=== PATIENT | female | born 1995 | race Caucasian/White ===

== ENCOUNTER 2024-05-23 18:04 | Emergency (ER) | payer OTHER, SELFPAY ==
[2024-05-23 18:08] VITALS: BP 149/89
[2024-05-23 18:39] LABS: % Basophils 0.6 % (0-2); % Eosinophils 1.4 % (0-6); % Immature Granulocytes 0.4 % (0-0.5); % Lymphocytes 17.7 % (20.5-51.1); % Monocytes 5.2 % (1.7-9.3); % Neutrophils 74.7 % (42.2-75.2); Absolute Basophils 0.1 10^3/uL (0-0.2); Absolute Eosinophils 0.2 10^3/uL (0-0.7); Absolute Immature Granulocytes 0.1 10^3/uL (0-0.05); Absolute Lymphocytes 2.7 10^3/uL (1.2-3.4); Absolute Monocytes 0.8 10^3/uL (0.1-0.6); Absolute Neutrophils 11.5 10^3/uL (1.4-6.5); Hematocrit 38.7 % (37.0-47.0); Hemoglobin 13.4 g/dL (12.0-16.0); Mean Corp Hgb Conc. 34.6 g/dL (33.0-37.0); Mean Corpuscular Hgb 27.9 pg (27.0-31.0); Mean Corpuscular Volume 80.5 fL (81.0-99.0); Mean Platelet Volume 10.2 fL (7.4-10.4); Nucleated Red Blood Cells % 0 %; Platelet Count 396 10^3/uL (130-400); Red Blood Cell Count 4.81 10^6/uL (4.20-5.40); Red Cell Dist. Width 12.6 % (11.5-14.5); White Blood Cell Count 15.4 10^3/uL (4.8-10.8)
[2024-05-23 18:45] VITALS: BP 131/82
[2024-05-23 19:00] VITALS: BP 128/84
[2024-05-23 19:03] LABS: ALT (SGPT) 24 U/L (0-35); AST (SGOT) 24 U/L (14-36); Albumin 4.7 g/dl (3.5-5.0); Alkaline Phosphatase 74 U/L (38-126); Blood Urea Nitrogen 13 mg/dl (7-17); Calcium 9.7 mg/dl (8.4-10.2); Carbon Dioxide 25 mmol/L (22-30); Chloride 101 mmol/L (98-107); Glucose 116 mg/dl (70-99); Potassium 4.7 mmol/L (3.5-5.1); Sodium 139 mmol/L (135-145); Total Bilirubin 0.5 mg/dl (0.2-1.3); Total Protein 7.7 g/dl (6.3-8.2); eGFR > 60.00
[2024-05-23 19:04] LABS: Troponin I < 0.012 ng/ml
--- NOTE | 2024-05-23 19:23 | ED.GENMED ---
History of Present Illness
General
Chief Complaint: Chest Pain
Source: patient
Exam Limitations: none
Time Seen by Provider: 05/23/24 18:36
History of Present Illness
History of Present Illness:
This is a 28 year old female that comes in with c/o lower sternal chest pain. States that this pain goes into her back and started around 2-2:30pm. States that the pain has been constant. Denies any fever, chills, SOB, abd pain, nausea, vomiting,
diarrhea, headache, dizziness, urinary burning
Past History
Past History
ED Past Medical History: HTN and Other (Mastocytosis)
ED Past Surgical History: Other (Myringotomy tubes, BOne marrow biopsy, )
Social History
Tobacco: Non-smoker
Alcohol: None
Personal: Single
Living: with roommate
Review of Systems
Review of Systems
All Other Systems: ROS reviewed and negative except as documented in HPI and ROS
Constitutional: Reports no symptoms; Denies fever or chills
EENT: Reports no symptoms
Respiratory: Reports no symptoms; Denies cough or trouble breathing
Cardiac: Reports chest pain
ABD/GI: Denies abdominal pain, nausea, vomiting or diarrhea
: Reports no symptoms; Denies dysuria, frequency or urgency
Musculoskeletal: Reports no symptoms
Skin: Reports no symptoms
Neurological: Reports no symptoms; Denies dizzy or headache
Psychiatric: Reports no symptoms
Phy Exam
General Physical Exam
General Presentation: well appearing and no apparent distress
General age: appears stated age
General Skin: warm and dry
General Habitus: normal
General Mental: alert
General Hydration: appears well hydrated
ENT Exam
ENT Exam: TM's normal, pharynx normal and neck supple
Eye Exam
Eye Exam: EOMI
Cardiovascular Exam
Cardiovascular Exam: regular rate/rhythm, no edema, no murmur and normal peripheral pulses
Pulmonary Exam
Pulmonary Exam: lungs clear, no respiratory distress, no rales, chest non tender, no crackles, no rhonchi, no wheezing and no cough
Gastrointestinal Exam
Gastrointestinal Exam: normal bowel sounds, non tender, soft, no organomegaly, no pulsatile mass and non distended
Musculoskeletal Exam
Musculoskeletal Exam: full ROM and no edema
Skin Exam
Skin Exam: normal color, warm/dry, no rash and no petechia
Psychiatric Exam
Psychiatric Exam: normal mood/affect
Scores
Heart Score for Chest Pain Patients
STEMI patient?: No
History: Slightly or Non-Suspicious
ECG: Normal
Age: </= 45 years
Risk Factors: No Risk Factors
Troponin: </= Normal Limit
Heart Score for Chest Pain Patients: 0
Heart Score Risk: 2.5% MACE over next 6 weeks
Course
Orders/Labs/Results
Orders:
Orders
05/23/24 18:05
ECG [Electrocardiogram (*1)] Urgent
Reason for Study: Chest Pain
EKG- Treatment ONCE
05/23/24 18:29
CMP [Comprehensive Metabolic Panel] Urgent
Complete Blood Count/With Diff Urgent
Lipase Urgent
Comment: ADD ON
Troponin I Urgent
05/23/24 19:18
Add On- LAB Urgent
Tests Added?: Lipase
Pantoprazole [Protonix IV] 40 mg IV NOW STA
US Abdomen Complete/Upper Urgent
Comment:
Reason For Exam: epigastric pain. Wbc elevated
05/23/24 19:19
EKG- Treatment ONCE
05/23/24 19:29
CR Chest - 2 Views Urgent
Comment:
Reason For Exam: Chest pain
05/23/24 21:30
Electrocardiogram (*1) Urgent
Reason for Study: Chest Pain
Other Reason for Exam: Repeat with Troponin
05/23/24 21:46
Doxycycline [Vibramycin] 100 mg PO NOW STA
05/23/24 22:18
Troponin I Urgent
Abnormal Lab Results
05/23/24
18:29
WBC 15.4 H 10^3/uL
(4.8-10.8)
MCV 80.5 L fL
(81.0-99.0)
Abs Immat Gran (auto) 0.1 H 10^3/uL
(0-0.05)
Absolute Neuts (auto) 11.5 H 10^3/uL
(1.4-6.5)
Absolute Monos (auto) 0.8 H 10^3/uL
(0.1-0.6)
Lymphocytes % 17.7 L %
(20.5-51.1)
Glucose 116 H mg/dl
(70-99)
05/23/24 18:29
05/23/24 18:29
Leukocytosis, Hyperglycemia. Troponin <0.012
Second Troponin <0.012
Vital Signs
Initial and Last Documented VS:
Initial Vital Signs
Temp Pulse Resp BP Pulse Ox
99.0 F 67 16 149/89 96
05/23/24 18:08 05/23/24 18:08 05/23/24 18:08 05/23/24 18:08 05/23/24 18:08
Last Documented Vital Signs
Temp Pulse Resp BP Pulse Ox
99.0 F 62 21 134/91 97
05/23/24 18:08 05/23/24 21:00 05/23/24 21:00 05/23/24 21:00 05/23/24 21:00
MDM/Problems Addressed
Differential Diagnosis Includes:
Gallbladder disease, Gastritis, Coronary syndrome
MDM/Problems Addressed:
This is a 28 year old female that comes in with c/o lower chest pain. States that this started around 2-2:30pm and has been constant and that it goes into her back.
Will check labs. Chest x-ray, US
Back into see patient. Explained that her blood work shows an elevation of the WBC's and her chest x-ray shows that there is a right lower lobe Pneumonia. Will start patient on antibiotics and await for second Troponin.
Repeat ECG: rate 68, NSR, Normal axis. Normal QRS, negative for ischemia.
Into see patient. Explained that the Second Troponin is normal. Will have patient follow up with the family doctor for recheck. Patient to return with any concerns.
Chronic conditions affecting care:
NA
Acute Exacerbation and/or Progression of Chronic Illness:
NA
*Radiology
Radiology exam reviewed: radiology read reviewed (US=NO sonographic evidence for cholelithiasis, acute cholecystitis, or biliary obstruction. Mild gallbladder distention. Chest-Mild ground-glass opacity in the right middle lobe and lingula.
Diagnostic possibilities are (1) mild subsegmental atelectasis (2) Mild pneumonia if there are signs) and other (Chest cont- if there are signs/symptoms of infection. Mild elevation of the anterior right hemidiaphragm. )
*Pulse Oximetry
Patient hypoxic: no
*EKG
Interpreted by ED Provider?: Yes
Heart Rate: 64
Rate: normal
Rhythm: sinus arrhythmia
[place]: normal axis
Interval: normal interval
QRS Pattern: normal QRS
Ischemia: no ischemia
*Summer Clerk Interpretation
Rate: normal
Heart Rate: 66
Rhythm: sinus
*Critical Care Note
Total Time (30-74mins, 75-104mins- exclusive of procedures): Not Applicable
ED Attending Note
-
Portions of this chart may have been created with voice recognition software.� Occasional wrong word or��sound alike� substitutions may have occurred due to the inherent limitations of voice recognition software.
Discharge Plan
Departure
Patient Disposition: Home (Routine Discharge)
Date of Disposition: 05/23/24
Time of Disposition: 22:51
Patient with high blood pressure during this ER visit?: Yes
Condition: Good
Covid-19: Not Applicable
Discharge Problem:
Pneumonia, Chest pain
Instructions: Pneumonia, Adult (DC), Chest Pain PCP Follow Up, BLOOD PRESSURE
Prescriptions:
New
doxycycline hyclate 100 mg capsule
100 mg PO BID Qty: 19 0RF
Referrals:
Tenthoff,Marisol Tejada MD [Family Provider] - Follow up in 2-3 days
Stand Alone Forms: Return to Work
Activity Restrictions/Additional Instructions:
As discussed, your blood work shows that your white blood cell count is elevated. Your Chest -ray shows that there is a pneumonia at the right base. Please increase your water intake to 8-8oz glasses daily. You have been started on an antibiotics
and given your first dose here. A prescription has been sent to your pharmacy. Please take as directed. Tylenol or Ibuprofen for any fever. IF YOU HAVE INCREASED PAIN, SHORTNESS OF BREATH OR YOU HAVE ANY OTHER CONCERNS PLEASE RETURN TO THE EMERGENCY
ROOM.
Interventions
Interventions:
*Risk Screen - Suicide Last Done: 05/23/24 18:08
*General Assessment Last Done: 05/23/24 18:08
*ED COVID-19 Vaccine History Last Done: 05/23/24 18:08
Discharge Date and Time
Print Language: SINHALA
[2024-05-23 19:54] LABS: Lipase 87 U/L (23-300)
[2024-05-23 20:32] VITALS: BP 136/83
[2024-05-23] MEDS: PROTONIX IV 40 MG IV (20:34)
[2024-05-23 21:00] VITALS: BP 134/91
[2024-05-23] MEDS: VIBRAMYCIN 100 MG PO (22:13)
[2024-05-23 22:46] LABS: Troponin I < 0.012 ng/ml
[2024-05-23 23:02] VITALS: BP 115/98
== END 2024-05-23 23:09 | disposition home or self-care (01) ==
LOC: EMR 18:04
PROVIDERS: Clinical Nurse Specialist Family Health; EMERGENCY PHYSICIAN Emergency Medicine; FAMILY PHYSICIAN Family Medicine
DX: J18.9 Pneumonia, unspecified organism (principal); R07.89 Other chest pain; I10 Essential (primary) hypertension; D47.01 Cutaneous mastocytosis
CPT/HCPCS: 99284; 96374; 71046; 76700; 80053; 83690; 84484; 85025; 93005

== ENCOUNTER 2025-03-18 21:32 | Emergency (ER) | payer OTHER, SELFPAY ==
[2025-03-18 21:46] VITALS: BP 146/101
[2025-03-18 22:16] LABS: Hematocrit 35.6 % (37.0-47.0); Hemoglobin 12.1 g/dL (12.0-16.0); Mean Corp Hgb Conc. 34.0 g/dL (33.0-37.0); Mean Corpuscular Volume 84.8 fL (81.0-99.0); Nucleated Red Blood Cells % 0 %; Platelet Count 404 10^3/uL (130-400); Red Cell Dist. Width 12.9 % (11.5-14.5)
[2025-03-18 22:30] LABS: HCG, Serum Qualitative Screen Negative
[2025-03-18 22:33] LABS: ALT (SGPT) 28 U/L (0-35); AST (SGOT) 21 U/L (14-36); Albumin 4.5 g/dl (3.5-5.0); Alkaline Phosphatase 62 U/L (38-126); Blood Urea Nitrogen 12 mg/dl (7-17); Calcium 9.1 mg/dl (8.4-10.2); Carbon Dioxide 24 mmol/L (22-30); Chloride 108 mmol/L (98-107); Glucose 102 mg/dl (70-99); Potassium 4.4 mmol/L (3.5-5.1); Sodium 139 mmol/L (135-145); Total Protein 7.6 g/dl (6.3-8.2); eGFR > 60.00
[2025-03-19 00:26] VITALS: BMI 37.4
--- NOTE | 2025-03-19 00:32 | ED.GENMED ---
History of Present Illness
General
Chief Complaint: Vaginal Bleeding
Source: patient
Exam Limitations: none
Time Seen by Provider: 03/19/25 00:11
Nursing documentation reviewed up to this point in time: agreed with
History of Present Illness
History of Present Illness:
29-year-old overweight female with history of hypertension, history of mastocytosis with prior bone marrow biopsies. No history of systemic nor hematologic abnormalities.
She has IUD in place since March 2021 with resultant amenorrhea since IUD placed but menses recurred approximately 6 months ago and has been monthly since then.
She had a routine appointment with her front end software developer at [facility] early January and during that visit IUD was not clearly identified.
As such an ultrasound performed which showed a large fibroid and IUD was found to be in place.
She had a follow-up MRI end of January with results reported just this week showing large fibroid.
Patient states several days after her visit with with front end software developer she began bleeding vaginally and has had some persistent vaginal bleeding since the or 2nd week of January. Increased bleeding today passing clots and mild intermittent pelvic
cramping. She did take a dose of ibuprofen this afternoon with resolution of cramping.
She denies dizziness nor lightheadedness, no chest pain or cough no shortness of breath. No fever no chills.
She denies risk of .
Prior to 1 month ago no previous history of heavy menses/dysfunctional uterine bleeding.
Past History
Past History
ED Past Medical History: HTN and Other (Mastocytosis)
ED Past Surgical History: Cholecystectomy and Other (Myringotomy tubes, Bone marrow biopsy, )
Social History
Tobacco: Non-smoker
Alcohol: None
Personal: Single
Living: with roommate
Employment: Employed
Family History
Family History: Other (Noncontributory)
Phy Exam
Physical Exam
Physical Exam:
GENERAL: 29-year-old overweight female appears her stated age, bright and alert, pleasant, appears in no acute distress. Mildly hypertensive otherwise vital signs within normal limits.
EYE: anicteric
NECK: Supple, nontender, no meningismus, no significant adenopathy.
ENT: oral mucosa is moist. No rhinorrhea.
CARDIAC: Regular rate and rhythm. no murmur.
LUNGS: Clear breath sounds bilaterally, no acute respiratory distress, no wheezes/rales/rhonchi
ABDOMEN: Rotund, soft, nondistended, without focal tenderness, no r/g, no cvat. normoactive BS.
: Moderate amount of dark red clotted blood vulvar region. No active bleeding.
NEUROLOGICAL: Alert and oriented x3, no focal neuro deficits.
SKIN: Warm and dry, normal color, skin intact. No rash.
MUSCULOSKELETAL: No C/C/E. peripheral pulses are full and equal b/l. No palpable tenderness.
PSYCH: Normal and appropriate interaction.
Course
Orders/Labs/Results
Orders:
Orders
03/18/25 21:54
Test Result ONCE
03/18/25 22:12
Complete Blood Count/With Diff Urgent
Comprehensive Metabolic Panel Urgent
HCG, Serum Qualitative Screen Urgent
03/19/25 00:32
US Pelvis W Transvag Combined Urgent
Reason For Exam: PELVIC PAIN, HEAVY VAG BLEEDING
Abnormal Lab Results
03/18/25
22:12
Hct 35.6 L %
(37.0-47.0)
Plt Count 404 H 10^3/uL
(130-400)
Absolute Lymphs (auto) 3.7 H 10^3/uL
(1.2-3.4)
Absolute Monos (auto) 0.7 H 10^3/uL
(0.1-0.6)
Chloride 108 H mmol/L
(98-107)
Glucose 102 H mg/dl
(70-99)
03/18/25 22:12
03/18/25 22:12
Vital Signs
Initial and Last Documented VS:
Initial Vital Signs
Temp Pulse Resp BP Pulse Ox
98.7 F 90 20 146/101 98
03/18/25 21:46 03/18/25 21:46 03/18/25 21:46 03/18/25 21:46 03/18/25 21:46
Last Documented Vital Signs
Temp Pulse Resp BP Pulse Ox
98.7 F 91 20 146/101 98
03/18/25 21:46 03/18/25 21:46 03/18/25 21:46 03/18/25 21:46 03/19/25 00:42
MDM/Problems Addressed
Differential Diagnosis Includes:
Dysfunctional uterine bleeding. Concern for fibroid related bleeding. Less likely miscarriage as patient denies risk of .
Concern for migration of IUD.
Concern for acute anemia, concern for progression of mastocytosis.
She remains hemodynamically stable. Lying supine, no active vaginal bleeding currently.
Labs are reassuring with normal H&H. Normal white blood cell count. Platelet count is normal as well. Chemistries are unremarkable and hCG is negative.
Will check pelvic ultrasound.
*Radiology
Radiology exam reviewed: radiology read reviewed
*Pulse Oximetry
SaO2: 98
Oxygen Mode of Delivery: Room air
Patient hypoxic: no
*Critical Care Note
Total Time (30-74mins, 75-104mins- exclusive of procedures): Not Applicable
Update Note
Update Note:
Patient has had no further vaginal bleeding. Remains comfortable. Remains hemodynamically stable.
Ultrasound shows a 7.4 x 6.2 x 7 cm echogenic mass in the lower uterine segment that appears to be fibroid in nature. According to patient this is known entity on ultrasound and recent MRI.
Recommend prompt follow-up with [facility] OPERATOR for recheck.
Discussed importance of staying well-hydrated on a daily basis.
I have written a prescription for TXA to be taken if vaginal bleeding worsens again.
Return precautions discussed.
ED Attending Note
-
Portions of this chart may have been created with voice recognition software.� Occasional wrong word or��sound alike� substitutions may have occurred due to the inherent limitations of voice recognition software.
Discharge Plan
Departure
Patient Disposition: Home (Routine Discharge)
Date of Disposition: 03/19/25
Time of Disposition: 02:56
Patient with high blood pressure during this ER visit?: No
Condition: Good
Discharge Problem:
DUB (dysfunctional uterine bleeding), Fibroid, uterine
Instructions: Uterine fibroids, Heavy Periods (DC)
Prescriptions:
New
tranexamic acid 650 mg tablet
1,300 mg PO TID 5 Days Qty: 30 0RF
No Action
doxycycline hyclate 100 mg capsule
100 mg PO BID Qty: 19 0RF
Referrals:
Tenthoff,Marisol Tejada MD [Family Provider, [facility]]
Activity Restrictions/Additional Instructions:
Follow-up with your front end software developer this week for recheck.
Interventions
Interventions:
*Risk Screen - Suicide Last Done: 03/19/25 00:20
*General Assessment Last Done: 03/19/25 00:20
*Neglect/Abuse Screening Last Done: 03/19/25 00:20
*ED- Fall Risk Assessment Last Done: 03/19/25 00:20
*ED COVID-19 Vaccine History Last Done: 03/18/25 21:46
ED-Female Genitourinary Assessment Last Done: 03/19/25 00:20
Discharge Date and Time
Print Language: [email or web address]
[2025-03-19 01:55] VITALS: BP 126/91
[2025-03-19 02:00] VITALS: BP 120/82
[2025-03-19 03:05] VITALS: BP 119/92
[2025-03-19 03:07] VITALS: BP 123/83
[2025-03-19 03:25] VITALS: BP 119/92
== END 2025-03-19 03:25 | disposition home or self-care (01) ==
LOC: EMR 21:32
PROVIDERS: Emergency Medicine; EMERGENCY PHYSICIAN Emergency Medicine; FAMILY PHYSICIAN Family Medicine
DX: N93.8 Other specified abnormal uterine and vaginal bleeding (principal); D25.9 Leiomyoma of uterus, unspecified; I10 Essential (primary) hypertension
CPT/HCPCS: 99284; 76830; 76856; 80053; 84703; 85025